=== PATIENT | male | born 1980 | race African-American/Black ===

== ENCOUNTER 2019-01-05 19:18 | Emergency (ER) | payer SELFPAY ==
[~2019-01-05] VITALS: Ht 175.2 cm; Wt 74.8 kg
[2019-01-05] MEDS ORDERED: ROBAXIN500 M1 PO (20:54)
== END 2019-01-05 21:10 | disposition home or self-care (01) ==
LOC: ED 19:18
DX: S13.4XXA Sprain of ligaments of cervical spine, initial encounter (principal); S00.93XA Contusion of unspecified part of head, initial encounter; Z91.040 Latex allergy status; W22.8XXA Striking against or struck by other objects, initial encounter; Y93.89 Activity, other specified; Y92.094 Garage of other non-institutional residence as the place of occurrence of the external cause; Y99.8 Other external cause status

== ENCOUNTER 2020-06-07 16:25 | Emergency (ER) | payer MEDICARE ==
[~2020-06-07] VITALS: Ht 175.2 cm; Wt 72.6 kg
[~2020-06-07 16:25] MED LIST: ROBAXIN500 M1 PO
== END 2020-06-07 17:22 | disposition home or self-care (01) ==
LOC: ED 16:25
DX: S60.414A Abrasion of right ring finger, initial encounter (principal); S60.416A Abrasion of right little finger, initial encounter; Z79.899 Other long term (current) drug therapy; W26.8XXA Contact with other sharp object(s), not elsewhere classified, initial encounter; Y93.89 Activity, other specified; Y92.89 Other specified places as the place of occurrence of the external cause; Y99.8 Other external cause status

== ENCOUNTER 2024-08-05 12:24 | Emergency (ER) | payer SELFPAY ==
[~2024-08-05] VITALS: Ht 175.2 cm; Wt 72.6 kg
[2024-08-05 13:16] LABS: BASO % 0.5 % (0.0-1.0); EOS # 0.1 10*3/uL (0.0-0.4); EOS % 1.2 % (1.0-4.0); HEMATOCRIT 46.1 % (42.0-52.0); LYMPH # 1.6 10*3/uL (1.3-4.4); LYMPH % 20.4 % (27.0-41.0); MEAN CELL VOLUME 94.9 fl (80.0-94.0); MEAN CORPUSCULAR HGB 30.5 pg (27.0-31.0); MEAN CORPUSCULAR HGB CONC 32.1 g/dl (33.0-37.0); MEAN PLATELET VOLUME 10.4 fl (9.6-12.3); MONO # 0.5 10*3/uL (0.1-1.0); NEUT # 5.5 10*3/uL (2.3-7.9); NEUT % 70.6 % (47.0-73.0); PLATELET COUNT AUTOMATED 195 10*3/uL (130-400); RED BLOOD COUNT 4.86 10*6/uL (4.50-5.90); RED CELL DISTRI WIDTH 12.2 % (0-14.5); WHITE BLOOD COUNT 7.7 10*3/uL (4.8-10.8)
[2024-08-05 13:34] LABS: BUN 12 mg/dl (9-23); CHLORIDE 105 mmol/L (98-107); POTASSIUM 3.8 mmol/L (3.4-5.1)
== END 2024-08-05 14:33 | disposition home or self-care (01) ==
LOC: ED 12:24
PROVIDERS: Nurse Practitioner
DX: N62 Hypertrophy of breast (principal); Z91.040 Latex allergy status; Z98.890 Other specified postprocedural states; Z87.891 Personal history of nicotine dependence